=== PATIENT | male | born 1995 | race Caucasian/White ===

== ENCOUNTER 2023-05-10 15:09 | Emergency (ER) | payer MEDICAID ==
[~2023-05-10] VITALS: Ht 167.6 cm; Wt 74.4 kg
[~2023-05-10 15:09] MED LIST: NYST5ORA PO; OMEP40CA21 PO
[2023-05-10 15:30] VITALS: BP 132/74; TEMP 98.3
[2023-05-10] MEDS ORDERED: NAPR-1164 PO (18:03)
[2023-05-10] MEDS ORDERED: ACET-2605 PO (18:03)
[2023-05-10 18:14] VITALS: O2SAT 100
== END 2023-05-10 18:17 | disposition home or self-care (01) ==
LOC: ER 15:09
DX: S62.636A Displaced fracture of distal phalanx of right little finger, initial encounter for closed fracture (principal); W22.8XXA Striking against or struck by other objects, initial encounter; Y93.89 Activity, other specified; Y92.89 Other specified places as the place of occurrence of the external cause; Y99.8 Other external cause status
CPT/HCPCS: 73130-TC

== ENCOUNTER → 2023-07-21 | Emergency (ER) | payer MEDICAID ==
[~2023-07-21] VITALS: Ht 170.2 cm; Wt 77.1 kg
[~2023-07-21] MED LIST changes: +ACET-2605 PO; +AMOX-430 PO; +NAPR-1164 PO; +dexaMETHasone SOD PHOSPHATE 1 ML ONE
[2023-07-21] MEDS: dexaMETHasone SOD PHOSPHATE 10 MG/ML VIAL IV ONE (12:30)
[2023-07-21 12:54] VITALS: BP 130/72; TEMP 98.2; O2SAT 97
== END | disposition home or self-care (01) ==
LOC: ER 11:34
DX: J02.9 Acute pharyngitis, unspecified (principal); F17.200 Nicotine dependence, unspecified, uncomplicated; Z79.899 Other long term (current) drug therapy; Z20.822 Contact with and (suspected) exposure to COVID-19
CPT/HCPCS: 99283; 87426; 96372; 87804 ×2; J1100

== ENCOUNTER 2024-07-02 20:54 | Emergency (ER) | payer MEDICAID ==
[~2024-07-02] VITALS: Ht 167.6 cm; Wt 81.6 kg
[~2024-07-02 20:54] MED LIST changes: -dexaMETHasone SOD PHOSPHATE 1 ML ONE
[2024-07-02] MEDS ORDERED: LIDO30AD10 TP (22:15)
[2024-07-02] MEDS ORDERED: IBUP-1957 PO (22:27)
[2024-07-02] MEDS ORDERED: ACET-868 PO (22:27)
[2024-07-02] MEDS: KETOROLAC TROMETHAMINE INJ 30 MG/ML VIAL IM ONE (22:30)
[2024-07-02] MEDS: ACETAMINOPHEN ES 500 MG TABLET PO ONE (22:30)
[2024-07-02] MEDS ORDERED: ACETAMINOPHEN ES 500 MG TABLET ONE (22:37)
[2024-07-02] MEDS ORDERED: KETOROLAC TROMETHAMINE INJ 30 MG/ML VIAL ONE (22:37)
[2024-07-02 22:43] VITALS: BP 129/79; TEMP 99; O2SAT 100
== END 2024-07-02 22:43 | disposition home or self-care (01) ==
LOC: ER 20:59
DX: S46.211A Strain of muscle, fascia and tendon of other parts of biceps, right arm, initial encounter (principal); F17.200 Nicotine dependence, unspecified, uncomplicated; Z79.1 Long term (current) use of non-steroidal anti-inflammatories (NSAID); Z87.19 Personal history of other diseases of the digestive system; Y93.B2 Activity, push-ups, pull-ups, sit-ups; Y92.39 Other specified sports and athletic area as the place of occurrence of the external cause; Y99.8 Other external cause status
CPT/HCPCS: 99283; 96372; J1885

== ENCOUNTER 2025-01-01 00:40 | Emergency (ER) | payer MEDICAID ==
[~2025-01-01] VITALS: Ht 175.3 cm; Wt 74.8 kg
[~2025-01-01 00:40] MED LIST changes: -ACET-2605 PO; +ACET-868 PO; -AMOX-430 PO; +IBUP-1957 PO; +LIDO30AD10 TP; -NAPR-1164 PO
[2025-01-01] MEDS ORDERED: AMOX-430 PO (00:59)
[2025-01-01] MEDS ORDERED: AMOX/CLAVULANATE 875 MG TABLET ONE (01:02)
[2025-01-01] MEDS ORDERED: TDAP [DIPH/PERTUSSIS/TET] 0.5 ML VIAL IM ONE (01:02)
[2025-01-01] MEDS: AMOX/CLAVULANATE 875 MG TABLET PO ONE (01:07)
[2025-01-01] MEDS: TDAP [DIPH/PERTUSSIS/TET] 0.5 ML VIAL IM ONE (01:07)
[2025-01-01 01:12] VITALS: BP 134/80; TEMP 98.5; O2SAT 98
== END 2025-01-01 01:12 | disposition home or self-care (01) ==
LOC: ER 00:44
DX: S91.331A Puncture wound without foreign body, right foot, initial encounter (principal); F17.200 Nicotine dependence, unspecified, uncomplicated; Z79.1 Long term (current) use of non-steroidal anti-inflammatories (NSAID); Z87.19 Personal history of other diseases of the digestive system; W45.0XXA Nail entering through skin, initial encounter; Y93.89 Activity, other specified; Y92.89 Other specified places as the place of occurrence of the external cause; Y99.8 Other external cause status
CPT/HCPCS: 90715